=== PATIENT | male | born 1945 | race Caucasian/White ===

== ENCOUNTER 2017-07-29 08:17 | Day surgery (SDC) | payer MEDICARE, OTHER ==
[2017-07-26 09:57] VITALS: BMI 26.5
[2017-07-29 09:52] VITALS: BP 116/56; PULSE 41; TEMP 98.1
--- NOTE | 2017-07-29 21:32 | EKG ---
Test Reason : Blood Pressure : / mmHG Vent. Rate : 067 BPM Atrial Rate : 067 BPM P-R Int : 110 ms QRS Dur : 092 ms QT Int : 438 ms P-R-T Axes : 057 -04 052 degrees QTc Int : 462 ms SINUS RHYTHM WITH SHORT HI WITH FREQUENT PREMATURE VENTRICULAR COMPLEXES IN A PATTERN OF BIGEMINY OTHERWISE NORMAL ECG NO PREVIOUS ECGS AVAILABLE Confirmed by ANDREIA CARROLL, STARLA ([id number]) on 07/29/2017 9:31:56 PM Referred By: Israel Bryant Confirmed By:STARLA BOSWELL MD
== END 2017-07-29 09:43 | disposition home or self-care (01) ==
LOC: JASU-SURG 08:17
PROVIDERS: ATTEND Urology
PROC: 0TQD8ZZ Repair Urethra, Via Natural or Artificial Opening Endoscopic (ICD-10-PCS; principal; 2017-07-29)
DX: Z53.8 Procedure and treatment not carried out for other reasons (principal)
CPT/HCPCS: 93005; 93010

== ENCOUNTER 2017-12-23 10:40 | Day surgery (SDC) | payer MEDICARE, OTHER ==
[2017-12-19 15:44] VITALS: BMI 26.4
[2017-12-23] MEDS ORDERED: LIDOCAINE HCL/PF 2% SDV 5ML VIAL ONE (16:08)
[2017-12-23] MEDS ORDERED: LIDOCAINE HCL 1%, 10 MG/ML (20ML VIAL) ONE (16:10)
[2017-12-23] MEDS ORDERED: ACETAMINOPHEN 325 MG TABLET (FP) PO PRN (16:50)
[2017-12-23] MEDS ORDERED: PROMETHAZINE HCL 25 MG/1 ML VIAL IVPUSH PRN (16:52)
[2017-12-23] MEDS ORDERED: ONDANSETRON 4 MG/2 ML VIAL IVPUSH PRN (16:52)
[2017-12-23] MEDS ORDERED: oxyCODONE HCL 5 MG TABLET PO PRN (16:52)
--- NOTE | 2017-12-23 16:53 | OP ---
Operative Note - Note: Operative Date: 12/23/17 Pre-Operative Diagnosis: urethral stricture Operation: cystoscopy and laser urethrotomy Findings: high grade urethral stricture at bulbous urethra Post-Operative Diagnosis: Same as Pre-op Surgeon: Israel Bryant Anesthesia: General
[2017-12-23] MEDS ORDERED: LACTATED RINGERS SOLUTION 1,000 ML IV SCH (17:00)
[2017-12-24 06:33] VITALS: BP 122/60; PULSE 65; TEMP 97.9
--- NOTE | 2017-12-24 07:22 | OP ---
DATE OF OPERATION: 12/23/2017 PREOPERATIVE DIAGNOSIS: Urethral stricture and prostate cancer status post radiation therapy. POSTOPERATIVE DIAGNOSIS: Urethral stricture and prostate cancer status post radiation therapy. PROCEDURE: Cystoscopy, laser urethrotomy. ATTENDING: Baron Vasquez MD ANESTHESIA: General. OPERATION: The patient has a longstanding history of recurrent urethral stricture disease. The patient is status post radiation therapy for prostate cancer. The patient currently has mild stress urinary incontinence, the risk of having significantly increased incontinence with these procedures has been explained to the patient. The patient was brought in the operating room, placed in supine position on the operating room table. General anesthesia was administered as was preoperative antibiotics. Patient was then placed in the dorsal lithotomy position. Cystoscopy was performed and a high-grade bulbous urethral stricture was noted. A wire was passed proximally due to the difficulty in maintaining visualization of the urethra. With the wire under fluoroscopic guidance in the bladder, a rigid cystoscope was taken to the level of the stricture. A holmium laser was utilized. An incision was made at the 12 o'clock position relaxation of the stricture and entry into the prostatic fossa. There was noted to be significant loss of elasticity in the bladder neck consistent with radiation changes. The bladder was investigated and no evidence of stones or neoplasm was noted. A 2+ bladder trabeculation was seen. At this point, the cystoscope was removed, and a 20-Fij[place] Silastic catheter was placed. No complications noted. The patient tolerated the procedure very well. BARON VASQUEZ M.D. [id number]
--- NOTE | 2017-12-24 09:48 | PN ---
Progress Note (short form) - Note Progress Note: Post op day#1.S/p Cystoscopy with laser lithotripsy under GA uneventful.Patient stable.No any anesthesia related problem.Patient DC from the anesthesia care.
== END 2017-12-24 10:25 | disposition home or self-care (01) ==
LOC: JASUSAT 10:40 → JASU-SURG 10:40 → J6S 17:55 → JASUSAT 12-24 10:25
PROVIDERS: ATTEND Urology
PROC: 0TND8ZZ Release Urethra, Via Natural or Artificial Opening Endoscopic (ICD-10-PCS; principal; 2017-12-23 13:00)
DX: N35.8 Other urethral stricture (principal); C61 Malignant neoplasm of prostate
CPT/HCPCS: 94760